=== PATIENT | male | born 2000 | race Caucasian/White ===

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

== ENCOUNTER 2021-06-24 07:15 | Inpatient (IN) | payer MEDICAID, OTHER ==
[~2021-06-24] VITALS: Ht 182.9 cm; Wt 69.0 kg
[2021-06-24 08:28] LABS: BASOPHILS % (AUTO) 0.7 % (0.0-2.0); EOSINOPHILS % (AUTO) 3.2 % (1.0-6.0); HEMATOCRIT 47.6 % (41-53); HEMOGLOBIN 16.9 g/dL (13.5-17.5); LYMPHOCYTES % (AUTO) 44.1 % (22.0-44.0); MEAN CORPUSCULAR HEMOGLOBIN 30.8 pg (26.0-34.0); MEAN CORPUSCULAR HGB CONC 35.4 G/dL (31.0-37.0); MEAN CORPUSCULAR VOLUME 87 fL (80-100); MONOCYTES # (AUTO) 0.5 K/uL (0.1-1.0); PLATELET COUNT (AUTO) 218 K/uL (150-450); RED BLOOD CELL COUNT(AUTO) 5.48 MIL/uL (4.50-5.90); RED CELL DISTRIBUTION WIDTH 12.9 % (11.5-14.5)
[2021-06-24 08:41] LABS: ANION GAP 2 mmol/L (8-16); CALCIUM, TOTAL 9.3 mg/dL (8.8-10.5); CARBON DIOXIDE 32 mmol/L (22-29); CHLORIDE 103 mmol/L (98-107); CREATININE 1.02 mg/dL (0.60-1.30); GLOMERULAR FILTR. RATE CALC > 60 mL/min (>60); GLUCOSE,RANDOM 97 mg/dL (70-110); POTASSIUM 4.1 mmol/L (3.5-5.1); SODIUM SERUM 137 mmol/L (136-145); UREA NITROGEN, BLOOD 10 mg/dL (7-18)
[2021-06-24 08:41] LABS: AMPHET/METH SCREEN,URINE NEGATIVE (NEGATIVE); BARBITURATE SCREEN, URINE NEGATIVE (NEGATIVE); BENZODIAZEPINES SCREEN,URINE NEGATIVE (NEGATIVE); CANNABINOID SCREEN,URINE NEGATIVE (NEGATIVE); COCAINE SCREEN,URINE NEGATIVE (NEGATIVE); METHADONE SCREEN, URINE NEGATIVE (NEGATIVE); OPIATE SCREEN,URINE NEGATIVE (NEGATIVE)
[2021-06-24 08:46] LABS: ALANINE AMINOTRANSFERASE 20 U/L (12-78); ALBUMIN 4.2 g/dL (3.4-5.0); ALKALINE PHOSPHATASE 114 U/L (46-116); ASPARTATE AMINOTRANSFERASE 13 U/L (15-37); BILIRUBIN,TOTAL 0.5 mg/dL (0.1-1.0); TOTAL PROTEIN, SERUM 7.9 g/dL (6.4-8.2)
[2021-06-24 08:46] LABS: PHENCYCLIDINE SCREEN,URINE NEGATIVE (NEGATIVE)
[2021-06-24 10:00] LABS: COVID AG,FIA SOURCE NASAL SWAB
[2021-06-24] MEDS ORDERED: ZOLPIDEM TARTRATE 10 MG TABLET PO PRN (10:45)
[2021-06-24] MEDS ORDERED: LORazepam 2 MG TABLET PO PRN (10:45)
[2021-06-24] MEDS ORDERED: OLANZapine 5 MG RAPDIS TABLET PO PRN (10:45)
[2021-06-24 11:03] LABS: APPEARANCE,URINE CLEAR (CLEAR); BILIRUBIN,URINE NEGATIVE (NEGATIVE); GLUCOSE, URINE (UA) NEGATIVE (NEGATIVE); KETONES,URINE NEGATIVE (NEGATIVE); LEUKOCYTE ESTERASE ,URINE NEGATIVE (NEGATIVE); NITRATE,URINE NEGATIVE (NEGATIVE); OCCULT BLOOD,URINE NEGATIVE (NEGATIVE); PROTEIN,URINE TRACE mg/dL (NEGATIVE); SPECIFIC GRAVITIY, URINE 1.025 (1.003-1.030); UROBILINOGEN,URINE <=1.0 mg/dL (<=1.0)
[2021-06-24] MEDS ORDERED: DiphenhydrAMINE HCL 50 MG CAPSULE PO ONE (12:15)
[2021-06-24] MEDS ORDERED: LORazepam 2 MG TABLET PO ONE (12:15)
[2021-06-24] MEDS ORDERED: HALOPERIDOL 5 MG TABLET PO ONE (12:15)
[2021-06-25 11:35] VITALS: BP 118/68
[2021-06-25] MEDS ORDERED: PNEUMOCOCCAL VACCINE POLYVALENT 0.5 ML VIAL [PPSV23] IM. ONE (15:15)
[2021-06-25 16:27] VITALS: BP 121/65
[2021-06-25] MEDS ORDERED: GuaiFENesin/D-METHORPHAN [SUGAR-FREE] 200-20MG/10 ML SYRUP UDCUP PO PRN (20:45)
[2021-06-25] MEDS ORDERED: LOPERAMIDE HCL 2 MG CAPSULE PO PRN (20:45)
[2021-06-25] MEDS ORDERED: MAGNESIUM HYDROXIDE SUSPENSION 30 ML UDCUP PO PRN (20:45)
[2021-06-25] MEDS ORDERED: TUBERCULIN, PURIFIED PROTEIN DERIVATIVE 5 TU/0.1 ML SYRINGE ID ONE (20:45)
[2021-06-25] MEDS ORDERED: HydrOXYzine PAMOATE 50 MG CAPSULE PO PRN (20:45)
[2021-06-25] MEDS ORDERED: ACETAMINOPHEN 325 MG TABLET PO PRN (20:45)
[2021-06-25] MEDS ORDERED: LURASIDONE HCL 20 MG TABLET PO PRN (20:45)
[2021-06-25] MEDS ORDERED: PROMETHAZINE HCL 25 MG TABLET PO PRN (20:45)
[2021-06-25] MEDS ORDERED: MAG HYDROX/AL HYDROX/SIMETH ES 30 ML SUSPENSION UDCUP PO PRN (20:45)
[2021-06-25] MEDS: MELATONIN 5 MG TABLET PO SCH (20:53)
[2021-06-26 00:52] VITALS: BP 117/63
[2021-06-26 03:43] VITALS: BP 109/68
[2021-06-26] MEDS: LORazepam 1 MG TABLET PO PRN (03:45)
[2021-06-26] MEDS: FluvoxaMINE MALEATE 50 MG TABLET PO SCH (07:01)
[2021-06-26 07:50] LABS: HEMOGLOBIN A1C 4.7 % (3.8-5.6)
[2021-06-26 07:59] LABS: CHOL/HDL RATIO 3.1 (4.2-7.3); FREE T4 (FREE THYROXINE) 1.06 ng/dL (0.76-1.46); THYROID STIMULATING HORMONE 0.75 uIU/mL (0.36-3.74)
[2021-06-26 08:20] VITALS: BP 120/71
[2021-06-26] MEDS: MULTIVITAMINS WITH MINERALS, THERAPEUTIC TABLET PO SCH (09:11)
[2021-06-26] MEDS: OMEGA-3/DHA/EPA/FISH OIL 1,000 MG CAPSULE PO SCH (09:11)
[2021-06-26] MEDS: THIAMINE 100 MG TABLET PO SCH ×2 (09:11→16:37)
[2021-06-26] MEDS: NALTREXONE HCL 50 MG TABLET PO SCH (09:11)
[2021-06-26] MEDS: FOLIC ACID 1 MG TABLET PO SCH (09:11)
[2021-06-26 16:06] VITALS: BP 118/77
[2021-06-26] MEDS: LURASIDONE HCL 20 MG TABLET PO SCH (16:37)
[2021-06-26] MEDS: PROPRANOLOL HCL 10 MG TABLET PO SCH (16:37)
[2021-06-26] MEDS: MELATONIN 5 MG TABLET PO SCH (20:26)
[2021-06-27 00:55] VITALS: BP 116/70
[2021-06-27] MEDS: FluvoxaMINE MALEATE 50 MG TABLET PO SCH (06:42)
[2021-06-27] MEDS: OMEGA-3/DHA/EPA/FISH OIL 1,000 MG CAPSULE PO SCH (09:14)
[2021-06-27] MEDS: MULTIVITAMINS WITH MINERALS, THERAPEUTIC TABLET PO SCH (09:14)
[2021-06-27] MEDS: FOLIC ACID 1 MG TABLET PO SCH (09:14)
[2021-06-27] MEDS: THIAMINE 100 MG TABLET PO SCH ×2 (09:14→16:19)
[2021-06-27] MEDS: PROPRANOLOL HCL 10 MG TABLET PO SCH ×4 (09:14→17:18)
[2021-06-27] MEDS: NALTREXONE HCL 50 MG TABLET PO SCH (09:14)
[2021-06-27 10:23] VITALS: BP 116/68
[2021-06-27] MEDS: LURASIDONE HCL 20 MG TABLET PO SCH (16:19)
[2021-06-27 16:21] VITALS: BP 100/61
[2021-06-27] MEDS ORDERED: NALTREXONE HCL 50 MG TABLET PO SCH (21:00)
[2021-06-27] MEDS ORDERED: FluvoxaMINE MALEATE 50 MG TABLET PO SCH (21:00)
[2021-06-27] MEDS: MELATONIN 5 MG TABLET PO SCH (21:46)
[2021-06-28 00:30] VITALS: BP 103/70
[2021-06-28] MEDS: LORazepam 1 MG TABLET PO PRN (00:32)
[2021-06-28 09:04] VITALS: BP 107/70
[2021-06-28] MEDS: PROPRANOLOL HCL 10 MG TABLET PO SCH ×3 (09:10→16:30)
[2021-06-28] MEDS: MULTIVITAMINS WITH MINERALS, THERAPEUTIC TABLET PO SCH (09:10)
[2021-06-28] MEDS: OMEGA-3/DHA/EPA/FISH OIL 1,000 MG CAPSULE PO SCH (09:10)
[2021-06-28] MEDS: THIAMINE 100 MG TABLET PO SCH ×2 (09:10→16:30)
[2021-06-28] MEDS: FOLIC ACID 1 MG TABLET PO SCH (09:10)
[2021-06-28 16:14] VITALS: BP 107/65
[2021-06-28] MEDS: LURASIDONE HCL 20 MG TABLET PO SCH (16:30)
[2021-06-28] MEDS ORDERED: NALT50TA6 PO (18:29)
[2021-06-28] MEDS ORDERED: FLUV50 PO (18:31)
[2021-06-28] MEDS ORDERED: PROP10TA73 PO (18:34)
[2021-06-28] MEDS ORDERED: LURA20TA PO (18:36)
[2021-06-28] MEDS ORDERED: MELA5TAB40 PO (21:05)
[2021-06-28] MEDS ORDERED: OMEG-108 PO (21:05)
== END 2021-06-28 21:00 | disposition home or self-care (01) | DRG 750 ==
LOC: EMS 07:16 → B2S 06-25 06:00
PROVIDERS: ADMIT Psychiatry & Neurology Psychiatry; ATTEND Psychiatry & Neurology Psychiatry
DX: F25.1 Schizoaffective disorder, depressive type (principal); R45.851 Suicidal ideations; Z20.822 Contact with and (suspected) exposure to COVID-19; J45.909 Unspecified asthma, uncomplicated; Z91.19 Patient's noncompliance with other medical treatment and regimen; Z55.9 Problems related to education and literacy, unspecified; Z59.9 Problem related to housing and economic circumstances, unspecified; Z63.9 Problem related to primary support group, unspecified; Z65.3 Problems related to other legal circumstances; Z79.899 Other long term (current) drug therapy
CPT/HCPCS: 80053; 80061; 81003; 83036; 84439; 84443; 85025; 86592; 99285; G0480; Q9967

== ENCOUNTER 2021-07-14 16:05 | Emergency (ER) | payer MEDICAID, OTHER ==
[~2021-07-14] VITALS: Ht 180.3 cm; Wt 64.0 kg
[~2021-07-14 16:05] MED LIST changes: +FLUV50 PO; +LURA20TA PO; +MELA5TAB40 PO; +NALT50TA6 PO; +OMEG-108 PO; +PROP10TA73 PO; -albuterol
[2021-07-14] MEDS ORDERED: ACETAMINOPHEN 500 MG TABLET PO ONE (18:00)
[2021-07-14 19:35] LABS: COVID AG,FIA SOURCE NASOPHARYNGEAL
[2021-07-14 19:58] LABS: INFLUENZA TYPE A NEGATIVE FOR TYPE A (NEGATIVE); INFLUENZA TYPE B NEGATIVE FOR TYPE B (NEGATIVE)
[2021-07-14 20:26] VITALS: BP 110/68
== END 2021-07-14 20:38 | disposition home or self-care (01) ==
LOC: EMS 16:05
DX: J11.1 Influenza due to unidentified influenza virus with other respiratory manifestations (principal); G47.00 Insomnia, unspecified; F12.90 Cannabis use, unspecified, uncomplicated; Z20.822 Contact with and (suspected) exposure to COVID-19; Z79.899 Other long term (current) drug therapy
CPT/HCPCS: 87804; 99283

== ENCOUNTER 2023-12-01 19:01 | Emergency (ER) | payer OTHER ==
[~2023-12-01] VITALS: Ht 180.3 cm; Wt 73.6 kg
[~2023-12-01 19:01] MED LIST changes: +NALT50TA33 PO; -NALT50TA6 PO; -OMEG-108 PO; +OMEG-135 PO
[2023-12-01 22:00] LABS: COVID AG,FIA SOURCE NASAL SWAB
[2023-12-01 22:45] LABS: SARS-COV2 (COVID) ANTIGEN,FIA Negative (Negative)
[2023-12-01 23:01] LABS: INFLUENZA TYPE A NEGATIVE FOR TYPE A (NEGATIVE); INFLUENZA TYPE B NEGATIVE FOR TYPE B (NEGATIVE)
[2023-12-01 23:06] VITALS: BP 126/65; PULSE 88; RESP 16; TEMP 97.7; O2SAT 97
[2023-12-01] MEDS ORDERED: GUAIF600 PO (23:18)
[2023-12-01] MEDS ORDERED: GUAIF10 PO ×2 (23:18→23:26)
[2023-12-01] MEDS ORDERED: FLUT16SP NASAL (23:18)
[2023-12-01] MEDS ORDERED: ALBU18HF12 IH (23:26)
[2023-12-01] MEDS ORDERED: CETI-450 PO (23:26)
== END 2023-12-02 00:24 | disposition home or self-care (01) ==
LOC: EMS 19:03
DX: J40 Bronchitis, not specified as acute or chronic (principal); J06.9 Acute upper respiratory infection, unspecified; F12.90 Cannabis use, unspecified, uncomplicated; Z98.890 Other specified postprocedural states; Z20.822 Contact with and (suspected) exposure to COVID-19
CPT/HCPCS: 71046; 87804; 99284